=== PATIENT | female | born 1990 | race Caucasian/White ===

== ENCOUNTER 2020-09-15 12:13 | Outpatient (NON) | payer BC, SELFPAY ==
[2020-09-15 14:51] LABS: Influenza Control Positive
== END 2020-09-15 12:14 ==
PROVIDERS: PCP Internal Medicine; Visit Provider Internal Medicine
DX: R50.9 Fever, unspecified (principal)
CPT/HCPCS: 87804

== ENCOUNTER → 2022-03-13 09:13 | Outpatient (CLI) | payer BC, SELFPAY ==
--- NOTE | ~2022-03-13 | US_ITS ---
EXAMINATION: US thyroid DATE: 03/13/2022 09:30 INDICATION: Thyroid nodule TECHNIQUE: Multiple ultrasound images of the thyroid were obtained. COMPARISON: None. FINDINGS: The right thyroid lobe measures 5.5 x 1.6 x 1.7 cm. The left thyroid lobe measures 3.9 x 1.3 x 1.9 c m. Wider than tall 4 mm solid hypoechoic left nodule with ill-defined margins and without echogenic foci (TI-RADS 4, moderately suspicious , FNA if >=1.5 cm, annual followup is >=1 cm). No other nodule s identified. There is normal echotexture, echogenicity and vascular flow throughout the thyroid glan d. IMPRESSION: 1. 4 mm left thyroid nodule which remains below size criteria for either biopsy or follow-up. Otherwi se normal thyroid. Reviewed, dictated and finalized at location A. IMPRESSION: 1. 4 mm left thyroid nodule which remains below size criteria for either biopsy or follow-up. Otherwise normal thyroid.
== END ==
PROVIDERS: PCP Nurse Practitioner; Visit Provider Nurse Practitioner
DX: E07.9 Disorder of thyroid, unspecified (principal)
CPT/HCPCS: 76536